=== PATIENT | male | born 1980 | race Caucasian/White ===

== ENCOUNTER 2018-10-28 16:34 | Emergency (ER) | payer BC, OTHER ==
[~2018-10-28] VITALS: Ht 188 cm; Wt 90.7 kg
--- OUTSIDE RECORDS SUMMARY | 2018-10-28 16:41 | XMS REPORT | Continuity of Care Document ---
Author Organization Unknown Address Unknown Allergies There is no data. Medications There is no data. Problems Date Dx Coded Attending Type Code Diagnosis Diagnosed By 05/20/2014 RADHA BHAT DO 709.9 UNSPECIFIED DISORDER OF SKIN AND SUBCUTANEOUS TISSUE 05/20/2014 RADHA BHAT DO 719.41 PAIN IN JOINT INVOLVING SHOULDER REGION 05/20/2014 GILL WEBER APRN 709.9 UNSPECIFIED DISORDER OF SKIN AND SUBCUTANEOUS TISSUE 05/20/2014 GILL WEBER APRN 719.41 PAIN IN JOINT INVOLVING SHOULDER REGION 05/20/2014 RADHA BHAT DO 709.9 UNSPECIFIED DISORDER OF SKIN AND SUBCUTANEOUS TISSUE 05/20/2014 RADHA BHAT DO 719.41 PAIN IN JOINT INVOLVING SHOULDER REGION 06/12/2014 RADHA BHAT DO V58.32 SUTURE REMOVAL Procedures Code [place] [address] EXCISION BENIGN LESION 0.6- 1 cm (spcify location in Medcin description) 06/02/2014 Results There is no data. Encounters ACCT No. Visit Date/Time Discharge Status Pt. Type Provider Facility Loc./Unit Complaint [id number] 06/12/2014 11:42:00 06/12/2014 23:59:59 CLS Outpatient RADHA BHAT DO [id number] 06/02/2014 14:53:00 06/02/2014 23:59:59 CLS Outpatient GILL WEBER APRN [id number] 05/20/2014 15:55:00 05/20/2014 23:59:59 CLS Outpatient RADHA BHAT DO
--- OUTSIDE RECORDS SUMMARY | 2018-10-28 16:41 | XMS REPORT ---
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 Name Role Phone Migration, Doctor Unavailable Unavailable PROBLEMS Type Condition ICD9-CM Code JFC34-MS Code Onset Dates Condition Status SNOMED Code Problem Pain in joint, shoulder region 719.41 Active 533505020 Problem Unspecified disorder of skin and subcutaneous tissue 709.9 Active 81072565 Problem Encounter for removal of sutures V58.32 Active 55475611 ALLERGIES No Information ENCOUNTERS Encounter Location Date Diagnosis [place] [id number] [place] [phone] Oct, [place] [address] [place] [id number] [address] Oct, [place] [id number] [place] [phone] May, [facility] [id number] [place] [phone] May, [place] [address] [address] [id number] [place] [phone] May, [place] [address] [address] May, [place] [address] [place] [address] [id number] [place] [phone] May, [facility] [id number] [place] [address] May, IMMUNIZATIONS No Known Immunizations SOCIAL HISTORY Never Assessed REASON FOR VISIT EMR-[facility] PLAN OF CARE VITAL SIGNS MEDICATIONS Medication Instructions Dosage Frequency Start Date End Date Duration Status Zomig 2.5 mg take 1 tablet (2.5 mg) by oral route once; if headache returns , the dose may be repeated after 2 hours, not to exceed 10 mg within 24 hours May, Active propranolol 10 mg take 1 tablet by Oral route 1 time per day May, Active MethylPREDNISolone 4 mg by Oral route every day for 6 days as directed per dose pack May, Active Ibuprofen 800 mg take 1 tablet (800 mg) by oral route 3 times per day with food PRN May, Active RESULTS No Results PROCEDURES No Known procedures INSTRUCTIONS MEDICATIONS ADMINISTERED No Known Medications
[2018-10-28] MEDS ORDERED: ZOLM2.5T5 PO (16:49)
[2018-10-28 17:11] VITALS: BP 129/94
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
== END 2018-10-28 17:20 | disposition home or self-care (01) ==
LOC: ER 16:38
DX: H53.8 Other visual disturbances (principal); M41.9 Scoliosis, unspecified; Z90.49 Acquired absence of other specified parts of digestive tract; Z86.61 Personal history of infections of the central nervous system
CPT/HCPCS: 99282

== ENCOUNTER 2022-11-08 06:55 | Outpatient (CLI) | payer OTHER ==
[~2022-11-08] VITALS: Ht 188 cm; Wt 96.6 kg
[~2022-11-08 06:55] MED LIST: ZOLM2.5T5 PO
== END 2022-11-08 15:19 | disposition home or self-care (01) ==
LOC: PREOP 06:55
PROVIDERS: ATTEND Surgery
DX: Z01.818 Encounter for other preprocedural examination (principal); R19.7 Diarrhea, unspecified; R14.0 Abdominal distension (gaseous); R10.9 Unspecified abdominal pain

== ENCOUNTER → 2022-11-15 | Outpatient (CLI) | payer BC, OTHER ==
--- NOTE | 2022-11-15 11:21 | Diagnostic Imaging Report ---
PROCEDURE: CT abdomen and pelvis without contrast. TECHNIQUE: Multiple contiguous axial images were obtained through the abdomen and pelvis without the use of intravenous contrast. Auto Exposure Controls were utilized during the CT exam to meet ALARA standards for radiation dose reduction. INDICATION: Evaluate small bowel. No prior studies are available for comparison. FINDINGS: The lung bases are clear. The liver and gallbladder are unremarkable. There is no biliary ductal dilatation. Pancreas and spleen are unremarkable. No adrenal mass is identified. No renal calculi or hydronephrosis is detected. Aorta is nonaneurysmal. The small and large bowel loops appear to be normal caliber. No obstruction is seen. No abnormal dilatation is detected. There is no inflammatory stranding, free fluid or fluid collection. There is no free air. Bladder and prostate are unremarkable. IMPRESSION: Unremarkable noncontrast CT of the abdomen and pelvis. No acute abnormality is detected. Dictated by: Dictated on workstation # [id number]
== END ==
LOC: RAD 08:15
PROVIDERS: ATTEND Nurse Practitioner
DX: Z01.89 Encounter for other specified special examinations (principal)
CPT/HCPCS: 74176

== ENCOUNTER → 2022-11-17 | Outpatient (CLI) | payer BC, OTHER ==
[~2022-11-17] MED LIST changes: +CATHETER FLUSH 10 ML SYR IVP PRN
--- NOTE | 2022-11-17 13:47 | Diagnostic Imaging Report ---
INDICATION: Right upper quadrant pain. TECHNIQUE: Patient was administered 5.3 mCi of technetium-99m Choletec intravenously, and imaging over the abdomen was performed. At 45 minutes, patient ingested 8 ounces of Ensure, and the gallbladder ejection fraction was calculated. FINDINGS: There is homogeneous uptake of activity by the liver with prompt excretion of activity into the gallbladder and common duct. There is normal passage of activity into the small bowel. Gallbladder ejection fraction is normal at 75%. IMPRESSION: Normal HIDA scan and gallbladder ejection fraction. Dictated by: Dictated on workstation # [id number]
== END ==
LOC: CARD 09:41
PROVIDERS: ATTEND Surgery
DX: R10.11 Right upper quadrant pain (principal)
CPT/HCPCS: 78227

== ENCOUNTER 2022-11-19 08:00 | Outpatient (RCR) | payer BC, OTHER ==
[~2022-11-19 08:00] MED LIST changes: -CATHETER FLUSH 10 ML SYR IVP PRN
== END 2022-12-13 | disposition home or self-care (01) ==
LOC: LAB 08:00 → EDSTATUS 11-20 08:51
PROVIDERS: ATTEND Surgery
DX: R19.7 Diarrhea, unspecified (principal)
CPT/HCPCS: 87015; 87045; 87046; 87324; 87328; 87329; 87449; 87899; 89055

== ENCOUNTER 2022-11-20 09:05 | Day surgery (SDC) | payer BC, OTHER ==
[~2022-11-20] VITALS: Ht 188 cm; Wt 96.6 kg
[2022-11-20] MEDS ORDERED: LACTATED RINGERS 1,000 ML IV STA (09:14)
[2022-11-20] MEDS ORDERED: HURRICAINE EXT TUBE (BENZOCAINE) XX PRN (09:15)
--- NOTE | 2022-11-20 09:27 | Progress Note-Pre Operative ---
Pre-Operative Progress Note Date of Available H&P: Oct 31, 2012 Date H&P Reviewed: November 20, 2022 Time H&P Reviewed: 09:24 History & Physical: H&P Reviewed, Patient Examed, No changes noted Pre-Operative Diagnosis: diarrhea, bloating, abd pain BO ISRAEL DO November 20, 2022 09:27
[2022-11-20 09:34] VITALS: BP 129/87
[2022-11-20] MEDS ORDERED: PROPOFOL INJECTION 50 ML IV ONE (10:23)
[2022-11-20] MEDS ORDERED: MIDAZOLAM 2 MG/2 ML (VERSED) VIAL ONE (10:26)
[2022-11-20 10:55] VITALS: BP 106/67
--- NOTE | 2022-11-20 10:56 | Progress Note-Post Operative ---
Post-Operative Progess Note Surgeon (s)/Process Owner (s) Surgeon BO ISRAEL DO Process Owner: JEFFREY Martinez student Pre-Operative Diagnosis diarrhea, bloating, abd pain Post-Operative Diagnosis Gastritis Colon polyp int hemorrhoids Procedure & Operative Findings Date of Procedure 11/20/22 Procedure Performed/Findings EGD with biopsy Colonoscopy with biopsy PROCEDURE NOTE: After informed consent was obtained, the patient was brought to the endoscopy suite, placed in bed in left lateral decubitus position. He was administered IV sedation by the FREIGHT FORWARDER who then monitored vitals the entire time, heart rate, blood pressure and pulse ox and the scope was inserted down the mouth through the esophagus into the stomach. Pushed into the stomach and noted some gastritis in the antrum. Pushed past the antrum into the duodenum; duodenum looked good. Pulled back and did a biopsy of antrum, then retroflexed the scope and did not see a hiatal hernia, took a picture and then pulled the scope into the GE junction. Noted some mild esophagitis and then did a biopsy of the GE junction. Pushed the scope back into the stomach, suctioned all the air out of the stomach. At this point pulled the scope up the esophagus and out the mouth. Switched camera, switched gloves, went down below and started the colonoscopy. Pushed all the way to about 150 cm and pushed into the cecum, took a picture of appendiceal orifice and noted the ileocecal valve. Then slowly withdrew the scope insufflating to look circumferentially at the cleaning starting in the cecum, up the ascending colon to the hepatic flexure, then down the transverse colon, splenic flexure and into the descending colon. I found a small flat polyp and elected to do a cold biopsy of it. Finally, down into the sigmoid and then into the rectal vault. I retroflexed the scope and took a picture of the internal hemorrhoids. The patient tolerated the procedure and he recovered in the endoscopy suite. Recommended for repeat colonoscopy in 5 years Anesthesia Type IV sedation by FREIGHT FORWARDER Estimated Blood Loss Estimated blood loss (mL): scant Specimens/Packing Specimens Removed antral bx GE jxn bx Desc colon polyp BO ISRAEL DO November 20, 2022 10:56
--- NOTE | 2022-11-20 10:57 | Endoscopy Discharge Instruct ---
Endo Procedure/Findings Findings 1.: Gastritis 2.: Polyp 3.: Internal Hemorrhoids Discharge Instructions - Activity: You might feel a little sleepy until tomorrow. This is due to the medicine you received to relax you. Until tomorrow, you should: NOT drive a car, operate machinery or power tools. NOT drink any alcoholic beverages. NOT make any important decisions or sign importortant papers. Do not return to work until tomorrow, unless otherwise instructed. Resume previous activities tomorrow. Diet: Start by taking liquids. If you tolerate liquids, advance to solid food. 1.: EGD in 3 years 2.: Colonscopy in 5 years Notify Physician - If you experience excessive bleeding, unusual abdominal pain, fever, or chest pain, contact your doctor immediately. Follow-Up: Other Follow up in my office in a week BO ISRAEL DO November 20, 2022 10:57
[2022-11-20 11:00] VITALS: BP 106/66
[2022-11-20 11:39] VITALS: BP 106/66
--- NOTE | 2022-11-20 12:57 | Anesthesia-General Post-Op ---
MAC Patient Condition Mental Status/LOC: Same as Preop Cardiovascular: Satisfactory Nausea/Vomiting: Absent Respiratory: Satisfactory Pain: Controlled Complications: Absent Post Op Complications Complications None Follow Up Care/Instructions Patient Instructions None needed. Anesthesiology Discharge Order Discharge Order Patient is doing well, no complaints, stable vital signs, no apparent adverse anesthesia problems. No complications reported per nursing. RICARDA HOFF CRNA November 20, 2022 12:57
== END 2022-11-20 11:44 | disposition home or self-care (01) ==
LOC: ENDO 09:05
PROVIDERS: ATTEND Surgery
DX: K63.5 Polyp of colon (principal); K29.70 Gastritis, unspecified, without bleeding; K20.90 Esophagitis, unspecified without bleeding; K64.8 Other hemorrhoids
CPT/HCPCS: 88305